=== PATIENT | male | born 1975 | race Hispanic/Latino ===

== ENCOUNTER 2023-08-16 06:37 | Day surgery (SDC) | payer OTHER ==
[2023-08-14 10:35] LABS: BASOPHILS # (AUTO) 0.07 K/uL (0.00-0.20); BASOPHILS % (AUTO) 0.9 % (0.0-5.0); EOSINOPHILS # (AUTO) 0.21 K/uL (0.00-0.70); EOSINOPHILS % (AUTO) 2.7 % (0.0-8.0); HEMATOCRIT 46.6 % (42-54); IMMATURE GRANULOCYTE ABSOLUTE 0.02 K/uL (0-1); LYMPHOCYTES # (AUTO) 2.3 K/uL (1.0-4.8); LYMPHOCYTES % (AUTO) 29.4 % (21.0-51.0); MEAN CORPUSCULAR HEMOGLOBIN 32.1 pg (27.0-33.0); MEAN CORPUSCULAR VOLUME 91.7 fL (79-99); MONOCYTES # (AUTO) 0.6 K/uL (0.1-1.0); MONOCYTES % (AUTO) 7.1 % (3.0-13.0); NEUTROPHILS # (AUTO) 4.7 K/uL (1.8-7.7); NEUTROPHILS % (AUTO) 59.6 % (40.0-77.0); PLATELET COUNT (AUTO) 307 K/uL (130-400); RED BLOOD CELL COUNT(AUTO) 5.08 MIL/uL (4.50-6.20); RED CELL DISTRIBUTION WIDTH 11.9 % (11.0-15.5); WHITE BLOOD COUNT (AUTO) 7.9 K/uL (4.8-10.8)
[2023-08-14 10:51] LABS: POTASSIUM 4.2 mmol/L (3.5-5.1)
[2023-08-14 11:30] LABS: INR < 0.93 (0.85-1.15); PROTHROMBIN TIME 10.8 SEC (9.6-11.6)
[2023-08-14 11:31] LABS: PARTIAL THROMBOPLASTIN TIME 29.4 SEC (26.3-35.5)
[2023-08-14 14:40] VITALS: BP 127/87; PULSE 65; RESP 18
[~2023-08-16] VITALS: Ht 170.2 cm; Wt 102.0 kg
[2023-08-16] VITALS (17 sets, daily range): BP systolic 106–146; BP diastolic 69–86; PULSE 67–89; RESP 12–18
[~2023-08-16 06:37] MED LIST: IBUP-2070 PO; LISI5TAB21 PO; TRAM50TA4 PO
[2023-08-16] MEDS ORDERED: LACTATED RINGERS 1000ML 1,000 ML IV ONE (07:33)
[2023-08-16] MEDS ORDERED: CEFAZOLIN SODIUM 2 GM VIAL ONE (07:33)
[2023-08-16] MEDS ORDERED: NEOSTIGMINE 5MG/5ML SYR IV ONE (08:04)
[2023-08-16] MEDS ORDERED: SUCCINYLCHOLINE CHLORIDE 20 MG/ML 10 ML VIAL ONE (08:04)
[2023-08-16] MEDS ORDERED: GLYCOPYRROLATE 1 MG/5 ML SYRINGE ONE (08:04)
[2023-08-16] MEDS ORDERED: PROPOFOL 10 MG/ML 20ML VIAL IV ONE (08:04)
[2023-08-16] MEDS ORDERED: LIDOCAINE PF 100MG/5ML (2%) SYRINGE 5ML ONE (08:04)
[2023-08-16] MEDS ORDERED: DEXAMETHASONE SOD PHOSPHATE 10MG/ML 1ML VIAL ONE (08:04)
[2023-08-16] MEDS ORDERED: MIDAZOLAM HCL 1 MG/ML 2ML VIAL ONE ×2 (08:04→09:23)
[2023-08-16] MEDS ORDERED: ROCURONIUM 10MG/1ML SYR 10 MG/ML ML ONE ×2 (08:05→08:54)
[2023-08-16] MEDS ORDERED: ONDANSETRON 4MG INJ ONE (08:05)
[2023-08-16] MEDS ORDERED: FENTANYL CITRATE PF 50 MCG/1 ML 5ML AMP IV ONE ×3 (08:05→10:10)
[2023-08-16] MEDS ORDERED: ROPIVACAINE 0.5% 5MG/ML 30ML IJ ONE (08:34)
[2023-08-16] MEDS ORDERED: CEFAZOLIN SODIUM 2 GM VIAL IVPB ONE (08:35)
[2023-08-16] MEDS ORDERED: EPHEDRINE SULFATE 50 MG/ML AMPULE ONE (08:46)
[2023-08-16] MEDS ORDERED: MIDAZOLAM HCL 1 MG/ML 5ML VIAL ONE (10:04)
[2023-08-16] MEDS ORDERED: KETAMINE 50MG/ML SYRINGE 50 MG/ML DISP.SYRIN ONE (10:04)
[2023-08-16] MEDS ORDERED: LIDOCAINE HCL 400MG/20ML VIAL ONE (10:04)
[2023-08-16] MEDS ORDERED: HYDR-4060 PO (10:53)
== END 2023-08-16 12:25 | disposition home or self-care (01) ==
LOC: DAH 06:37
PROVIDERS: ATTEND Student in an Organized Health Care Education/Training Program
DX: M75.112 Incomplete rotator cuff tear or rupture of left shoulder, not specified as traumatic (principal); M75.22 Bicipital tendinitis, left shoulder; M75.42 Impingement syndrome of left shoulder; M94.212 Chondromalacia, left shoulder; M65.812 Other synovitis and tenosynovitis, left shoulder; M25.812 Other specified joint disorders, left shoulder; G89.29 Other chronic pain; I10 Essential (primary) hypertension; Z79.01 Long term (current) use of anticoagulants; Z79.899 Other long term (current) drug therapy; Z90.49 Acquired absence of other specified parts of digestive tract; Z98.890 Other specified postprocedural states; Z87.891 Personal history of nicotine dependence
CPT/HCPCS: 80048; 85025; 85610; 85730; 36415; 64415; 29826; 29828; A4600; A4663; J7030; A4565; J7120; J3010 ×3; J3490 ×4; J1100; J2710; J0330; J2001; J2250 ×3; J2704; J2405; J2795; J0690 ×2; A6223; A4930; A4215; A4223; A4222; A4221; C1713